=== PATIENT | female | born 1995 | race Caucasian/White ===

== ENCOUNTER → 2016-11-14 | Outpatient (CLI) | payer OTHER | END | disposition home or self-care (01) | LOC: CFH 12:18 | PROVIDERS: ATTEND Obstetrics & Gynecology | DX: R10.2 Pelvic and perineal pain (principal); R10.31 Right lower quadrant pain; R10.32 Left lower quadrant pain; Z97.5 Presence of (intrauterine) contraceptive device | CPT/HCPCS: 76830 ==